=== PATIENT | female | born 1950 | race Caucasian/White ===

== ENCOUNTER → 2017-02-11 | Outpatient (CLI) | payer OTHER, MEDICARE ==
--- NOTE | 2017-02-11 15:28 | RAD ---
DATE: 02/11/2017 EXAM: DIGITAL SCREEN BILAT W/CAD HISTORY: Screening COMPARISON: One year earlier This study was interpreted with the benefit of Computerized Aided Detection (CAD). FINDINGS: Breast Density: SCATTERED The breast parenchyma shows scattered fibroglandular densities. Breast parenchyma level B. There has not been a significant change in the appearance of the breasts compared to the previous exam IMPRESSION: Benign findings BI-RADS CATEGORY: 2 BENIGN FINDING(S) RECOMMENDED FOLLOW-UP: 12M 12 MONTH FOLLOW-UP PQRS compliance statement: Patient information was entered into a reminder system with a target due date 02/11/2018 for the next mammogram. Mammography is a sensitive method for finding small breast cancers, but it does not detect them all and is not a substitute for careful clinical examination. A negative mammogram does not negate a clinically suspicious finding and should not result in delay in biopsying a clinically suspicious abnormality. "Our facility is accredited by the [employer] Mammography [employer]."
== END | disposition home or self-care (01) ==
LOC: MAMMO 14:40
PROVIDERS: ATTEND Obstetrics & Gynecology
DX: Z12.31 Encounter for screening mammogram for malignant neoplasm of breast (principal)
CPT/HCPCS: G0202; 77067

== ENCOUNTER → 2018-02-12 | Outpatient (CLI) | payer OTHER, MEDICARE ==
--- NOTE | 2018-02-13 09:56 | RAD ---
DATE: 02/12/2018 EXAM: MAMMO RUTH SCREENING BILATERAL HISTORY: Routine screening COMPARISON: 02/11/2017 This study was interpreted with the benefit of Computerized Aided Detection (CAD). Breast Density: SCATTERED The breast parenchyma shows scattered fibroglandular densities. Breast parenchyma level B. FINDINGS: 2-D and 3-D tomosynthesis imaging was performed in CC and MLO projections. The fibroglandular tissues are heterogeneously somewhat nodular pattern. No new or enlarging breast densities are seen. No spiculated mass or architectural distortion is evident. Benign calcifications are present. No suspicious microcalcifications have developed. IMPRESSION: There is no mammographic evidence of malignancy in either breast. BI-RADS CATEGORY: 2 BENIGN FINDING(S) RECOMMENDED FOLLOW-UP: 12M 12 MONTH FOLLOW-UP PQRS compliance statement: Patient information was entered into a reminder system with a target due date for the next mammogram. Mammography is a sensitive method for finding small breast cancers, but it does not detect them all and is not a substitute for careful clinical examination. A negative mammogram does not negate a clinically suspicious finding and should not result in delay in biopsying a clinically suspicious abnormality. "Our facility is accredited by the [employer] Mammography [employer]."
== END | disposition home or self-care (01) ==
LOC: MAMMO 14:51
PROVIDERS: ATTEND Internal Medicine
DX: Z12.31 Encounter for screening mammogram for malignant neoplasm of breast (principal)
CPT/HCPCS: 77063; 77067

== ENCOUNTER → 2019-02-16 | Outpatient (CLI) | payer OTHER ==
--- NOTE | 2019-02-19 07:25 | RAD ---
DATE: 02/16/2019 3:01 PM EXAM: MAMMO RUTH SCREENING BILATERAL HISTORY: routine screening evaluation. COMPARISON: 02/12/2018, 02/11/2017, 02/12/16 Bilateral CC and MLO views of the breasts were performed. Bilateral breast tomosynthesis was performed in CC and MLO projections. This study was interpreted with the benefit of Computerized Aided Detection (CAD). FINDINGS: Breast Density: SCATTERED The breast parenchyma shows scattered fibroglandular densities. Breast parenchyma level B Benign calcifications are present. The parenchymal pattern appears stable. Well-circumscribed nodular density in the lateral right breast is seen at the posterior depth, approximately 8 cm from the nipple. No suspicious right breast microcalcification or architectural distortion. No suspicious masses, microcalcifications or architectural distortion is present to suggest malignancy in the left breast. The visualized axillae are unremarkable. IMPRESSION: Right breast mass, findings for which additional imaging is advised. BI-RADS CATEGORY: 2 BENIGN FINDING(S) RECOMMENDED FOLLOW-UP: ADD ADDITIONAL IMAGING The patient will be contacted to return for additional imaging and a supplemental report will follow. PQRS compliance statement: Patient information was entered into a reminder system with a target due date for the next mammogram. Mammography is a sensitive method for finding small breast cancers, but it does not detect them all and is not a substitute for careful clinical examination. A negative mammogram does not negate a clinically suspicious finding and should not result in delay in biopsying a clinically suspicious abnormality. "Our facility is accredited by the [employer] Mammography [employer]."
== END | disposition home or self-care (01) ==
LOC: MAMMO 14:47
PROVIDERS: ATTEND Nurse Practitioner Women's Health
DX: Z12.31 Encounter for screening mammogram for malignant neoplasm of breast (principal); N64.89 Other specified disorders of breast; N63.10 Unspecified lump in the right breast, unspecified quadrant
CPT/HCPCS: 77063; 77067

== ENCOUNTER → 2019-03-08 | Outpatient (CLI) | payer OTHER ==
--- NOTE | 2019-03-08 14:41 | RAD ---
DATE: 03/08/2019 EXAM: DIGITAL DIAGNOSTIC RT, BREAST RIGHT HISTORY: New right breast mass COMPARISON: Bilateral mammogram 02/16/2019 This study was interpreted with the benefit of Computerized Aided Detection (CAD). Breast Density: SCATTERED The breast parenchyma shows scattered fibroglandular densities. Breast parenchyma level B. FINDINGS: Spot compression CC and MLO views of the right breast were performed. Previously seen right breast mass becomes isodense to adjacent parenchyma and could reflect overlapping fibroglandular tissue. Targeted sonographic evaluation of the right breast was performed at the 11:00 position, 7 cm from the nipple at 11:30 position, 3 cm from the nipple. There is a 6 x 3 x 3 mm circumscribed parallel mass at the 11:00 position, 7 cm from the nipple with minimal through transmission suggestive of a complicated cyst given hypoechoic echotexture. This finding is probably benign. At the 11:30 position, 3 cm from the nipple there is a 4 x 4 by 3 mm hypoechoic parallel mass through transmission and thin septations suggestive of a complicated cyst. Findings are probably benign. IMPRESSION: Probably benign findings of the right breast. Recommend six-month follow-up right mammogram and ultrasound. BI-RADS CATEGORY: 3 PROBABLY BENIGN FINDING(S)-SHORT INTERVAL FOLLOW-UP SUGGESTED RECOMMENDED FOLLOW-UP: 6M 6 MONTH FOLLOW-UP PQRS compliance statement: Mammography is a sensitive method for finding small breast cancers, but it does not detect them all and is not a substitute for careful clinical examination. A negative mammogram does not negate a clinically suspicious finding and should not result in delay in biopsying a clinically suspicious abnormality. "Our facility is accredited by the [employer] Mammography [employer]."
== END | disposition home or self-care (01) ==
LOC: MAMMO 13:01
PROVIDERS: ATTEND Nurse Practitioner Women's Health
DX: N64.89 Other specified disorders of breast (principal)
CPT/HCPCS: 76641; 77065

== ENCOUNTER → 2019-06-09 | Outpatient (CLI) | payer MEDICARE, OTHER ==
--- NOTE | 2019-06-09 14:20 | RAD ---
DATE: 06/09/2019 EXAM: MAMMO RUTH DIAG RT HISTORY: Right breast pain COMPARISON: 02/16/2019 screen mammographic exam, right unilateral diagnostic mammographic exam and right breast ultrasound 03/08/2019 This study was interpreted with the benefit of Computerized Aided Detection (CAD). Breast Density: SCATTERED The breast parenchyma shows scattered fibroglandular densities. Breast parenchyma level B. FINDINGS: No suspicious calcification, mass, or distortion. Previously described asymmetry involving the right outer breast does not have a corresponding finding on the current exam. Multiple small masses are present involving the right breast but these are unchanged compared to previous exam and are primarily seen on tomosynthesis imaging measuring less than 0.5 cm diameter. IMPRESSION: No suspicious finding BI-RADS CATEGORY: 3 PROBABLY BENIGN FINDING(S)-SHORT INTERVAL FOLLOW-UP SUGGESTED RECOMMENDED FOLLOW-UP: 3M 3 MONTH FOLLOW-UP Ultrasound examination only in 3 months from now as recommended as stated on 03/08/2019 right breast ultrasound report. Clinical management of right breast pain is recommended. PQRS compliance statement: Patient information was entered into a reminder system with a target due date for the next mammogram. Mammography is a sensitive method for finding small breast cancers, but it does not detect them all and is not a substitute for careful clinical examination. A negative mammogram does not negate a clinically suspicious finding and should not result in delay in biopsying a clinically suspicious abnormality. "Our facility is accredited by the [employer] Mammography [employer]."
== END | disposition home or self-care (01) ==
LOC: MAMMO 11:42
PROVIDERS: ATTEND Nurse Practitioner Women's Health
DX: N63.10 Unspecified lump in the right breast, unspecified quadrant (principal)
CPT/HCPCS: 77065; G0279; 77061

== ENCOUNTER → 2019-10-07 | Outpatient (CLI) | payer MEDICARE ==
--- NOTE | 2019-10-07 15:45 | RAD ---
DATE: 10/07/2019 1:45 PM EXAM: BREAST ultrasound and mammogram RIGHT HISTORY: Short-term follow-up probably benign right breast findings on breast ultrasound of 03/08/2019 and mammogram of 06/09/2019 COMPARISON: Right mammogram of 06/09/2019, right mammogram and ultrasound of 03/08/2019, bilateral screening mammograms of 02/16/2019, [id number] and 02/11/2017. Targeted ultrasound of the right breast and axilla was performed in the area of previous sonographic interest after which additional mammographic views including spot compression views in the CC projection, along with a full-field right ML view and and MLO tangential view were obtained using a triangular marker at the skin surface for mammographic sonographic correlation. This study was interpreted with the benefit of Computerized Aided Detection (CAD). FINDINGS: Breast Density: SCATTERED The breast parenchyma shows scattered fibroglandular densities. Breast parenchyma level B Targeted ultrasound of the upper-outer quadrant right breast identified an irregular 3 mm mass at the 11:30 o'clock position 3 cm from the nipple with somewhat angular margins. This was not as apparent on the prior examination. Additional mammographic views fail to show a clear mammographic correlate to this small, superficial sonographic right breast lesion. It is nonetheless suspicious and recommended for biopsy. Sonographic survey of the right axilla is unremarkable. IMPRESSION: Suspicious 3 mm mass in the right breast at the 11:30 o'clock position 3 cm from the nipple. BI-RADS CATEGORY: 4 SUSPICIOUS ABNORMALITY- BIOPSY SHOULD BE CONSIDERED RECOMMENDED FOLLOW-UP: BIO BIOPSY RECOMMENDED PQRS compliance statement: Patient information was entered into a reminder system with a target due date for the next mammogram. Mammography is a sensitive method for finding small breast cancers, but it does not detect them all and is not a substitute for careful clinical examination. A negative mammogram does not negate a clinically suspicious finding and should not result in delay in biopsying a clinically suspicious abnormality. "Our facility is accredited by the [employer] Mammography Program."
== END | disposition home or self-care (01) ==
LOC: MAMMO 13:01
PROVIDERS: ATTEND Nurse Practitioner Women's Health
DX: R92.8 Other abnormal and inconclusive findings on diagnostic imaging of breast (principal)
CPT/HCPCS: 76641; 77065; G0279; 77061

== ENCOUNTER → 2019-10-21 | Outpatient (CLI) | payer MEDICARE ==
--- NOTE | 2019-10-21 17:03 | RAD ---
EXAMINATION: Ultrasound-guided right breast biopsy, diagnostic right breast mammogram CLINICAL INDICATION: Suspicious right breast mass. COMPARISON: Right breast diagnostic mammogram and ultrasound 10/07/2019 FINDINGS/TECHNIQUE: Ultrasound-guided right breast biopsy: The purpose of the procedure and risks and benefits were discussed with the patient. Informed consent was obtained. A timeout was performed. The mass in the right breast at 11:30, 3 cm from the nipple was identified under ultrasound. The overlying skin was marked, prepped, and draped in standard sterile fashion. Skin and subcutaneous soft tissue was anesthetized with 1 percent lidocaine. A small skin darron was made. Using continuous ultrasound guidance, four 1.5 cm 14-gauge biopsy samples were obtained using a coaxial 14-gauge Bard biopsy device. The samples were placed in formalin and sent to the laboratory for analysis. A biopsy clip was deployed in the mass under ultrasound guidance. The introducer was removed. Pressure was held to achieve hemostasis. Skin was cleansed and covered with a sterile dressing. The patient tolerated the procedure well and was sent for mammography in stable condition. Post clip diagnostic right breast mammogram: CC and ML views of the right breast were obtained. There are scattered areas of fibroglandular density. The biopsy clip is in appropriate position at 11:30, 3.5 cm from the nipple. IMPRESSION: 1. Technically successful biopsy of right breast mass. 2. Appropriate position of postbiopsy clip. Electronically signed by: Sylvia Forde MD (10/21/2019 5:00 PM) [id number]
--- NOTE | 2019-10-22 15:07 | PATHOLOGY ---
[facility] Accession Number: [id number] . 01 Material submitted: . breast - RIGHT BREAST TISSUE 11:30 3CMFN. Modifiers: right . 01 Clinical history: . Right breast mass. . 02 Diagnosis: Breast "right breast biopsy 11:30, 3 cm from the nipple": - Fibrocystic changes with apocrine metaplasia the largest area measuring 0.5 cm in greatest dimension. - See comment. ([facility] 10/22/2019) [facility] 10/22/2019 1220 Local . 02 Comment: This case is also reviewed by Dr. Margi Phan. A well-defined mass is not identified. Suggest radiological and clinical correlation. ([facility] 10/22/2019) . 02 Electronically signed: . German Ayala MD, Pathologist NPI- [id number] . 01 Gross description: . Received in formalin labeled "Makenna Coats, right breast 1130 3 cm from nipple" are multiple cylindrical yellow-edwards soft tissue cores measuring in aggregate 1.6 x 0.5 x 0.2 cm. The specimen is submitted entirely in cassettes A1-A3. The specimen is removed from the patient at 1420 and placed in formalin at 1422 on 10/21/2019. The specimen is removed from formalin at 2340 on 10/21/2019. ([facility]; 10/21/2019) [facility] 10/21/2019 1637 Local . 02 Pathologist provided ICD-10: N60.11, N60.81 . 02 CPT . 116032 Specimen Comment: A courtesy copy of this report has been sent to [phone] Specimen Comment: [id number], Specimen Comment: Report sent to ,DR TOMLIN / DR SANDOVAL Performed at: 01 [facility] [address], [place], [place] [id number] MD Alex Walls MD Phone: [phone] Performed at: 02 [facility] [address], [place] [id number] MD Samuel Retana MD Phone: [phone]
== END ==
LOC: US 13:14
PROVIDERS: ATTEND Obstetrics & Gynecology
DX: N63.10 Unspecified lump in the right breast, unspecified quadrant (principal); N60.11 Diffuse cystic mastopathy of right breast
CPT/HCPCS: 19083; 77065; 88305; C1713; 19081; 76942

== ENCOUNTER → 2020-05-23 | Outpatient (CLI) | payer MEDICARE ==
--- NOTE | 2020-05-23 11:08 | RAD ---
Examination: Bilateral digital diagnostic mammogram. INDICATION: 70-year-old woman due for bilateral mammographic screening presents for short-term follow -up benign right breast biopsy performed under ultrasound guidance. COMPARISON: Right breast ultrasound-guided core needle biopsy images and post procedure mammogram of 10/21/2019, right digital diagnostic mammogram 10/07/2019, right diagnostic mammogram of 06/09/2019, right diagnostic mammogram of 03/08/2019, and bilateral screening mammogram of 02/16/2019 TECHNIQUE: CC and MLO views of both breasts were obtained with 2-D and 3-D technique and reviewed wit h computer-aided detection. FINDINGS: Scattered fibroglandular densities. Benign S shaped biopsy marker in the anterior third upper right breast, at the approximate 11:30 o'cl ock position 3 cm from the nipple. Nodular parenchymal pattern. No developing mass, suspicious calcification or architectural distortion in either breast. IMPRESSION: Benign findings. No evidence of malignancy. BI-RADS Category 2 Benign findings Recommend return to routine screening next due in one year. Patient entered into a reminder system with targeted due date for next mammogram. Electronically signed by: Earnestine Godinez MD (05/23/2020 11:05 AM) [id number]
== END ==
LOC: MAMMO 09:17
PROVIDERS: ATTEND Obstetrics & Gynecology
DX: R92.8 Other abnormal and inconclusive findings on diagnostic imaging of breast (principal)
CPT/HCPCS: 77066; G0279; 77062

== ENCOUNTER → 2021-01-16 | Outpatient (CLI) | payer MEDICARE ==
--- NOTE | 2021-01-16 16:37 | KCIC ---
INDICATION: Screening for osteopenia/osteoporosis. Reason: POST MENOPAUSAL / Spl. Instructions: / H istory: COMPARISON: None. TECHNIQUE: Bone densitometry was performed through the lumbar spine and proximal femur. IMPRESSION: Lumbar Spine: BMD: 1.22 T-Score: 1.6 Range: Normal Proximal Femur: BMD: 0.96 T-Score: 0.2 Range: Normal World Health Organization Criteria for Bone Density: T-Score: > -1.0: Normal Range < -1.0 to -2.5: Osteopenic Range < -2.5: Osteoporotic Range Electronically signed by: Nicanor Rapp MD (01/16/2021 4:34 PM) [id number]
== END ==
LOC: KCIC DEXA 10:50
PROVIDERS: ATTEND Obstetrics & Gynecology
DX: N95.9 Unspecified menopausal and perimenopausal disorder (principal)
CPT/HCPCS: 77080

== ENCOUNTER → 2021-05-28 | Outpatient (CLI) | payer MEDICARE ==
--- NOTE | 2021-05-28 13:16 | RAD ---
DATE: 05/28/2021 EXAM: MG BILAT SCREEN+RUTH HISTORY: Screening COMPARISON: Multiple prior exams including 05/23/2020 and 02/16/2018 This study was interpreted with the benefit of Computerized Aided Detection (CAD). Breast Density: SCATTERED The breast parenchyma shows scattered fibroglandular densities. Breast pare nchyma level B. FINDINGS: There is a biopsy clip in the right breast. No suspicious mass, suspicious calcifications, or architectural distortion. IMPRESSION: No evidence of malignancy. BI-RADS CATEGORY: 1 NEGATIVE RECOMMENDED FOLLOW-UP: 12M 12 MONTH FOLLOW-UP PQRS compliance statement: Patient information was entered into a reminder system with a target due d ate for the next mammogram. Mammography is a sensitive method for finding small breast cancers, but it does not detect them all a nd is not a substitute for careful clinical examination. A negative mammogram does not negate a clin ically suspicious finding and should not result in delay in biopsying a clinically suspicious abnorma lity. "Our facility is accredited by the [employer] Mammography [employer]." Electronically signed by: Sylvia Forde MD (05/28/2021 1:14 PM) [id number]
== END ==
LOC: MAMMO 07:54
PROVIDERS: ATTEND Obstetrics & Gynecology
DX: Z12.31 Encounter for screening mammogram for malignant neoplasm of breast (principal)
CPT/HCPCS: 77063; 77067